=== PATIENT | male | born 1940 | race African-American/Black ===

== ENCOUNTER 2017-01-10 09:24 | Day surgery (SDC) | payer OTHER, BC ==
[2017-01-09 11:39] VITALS: BMI 24.3
--- NOTE | 2017-01-10 11:38 | HP ---
History & Physical Update - History History: No Change - Physical Physical: No Change - Assessment Assessment: No Change - Plan Plan: No Change
[2017-01-10] MEDS ORDERED: OXYCODONE/APAP 5/325MG COMBO TABLET PO PRN (11:40)
--- NOTE | 2017-01-10 11:46 | OP ---
Operative Note - Note: Operative Date: 01/10/17 Pre-Operative Diagnosis: BPH w LUTS Operation: Bipolar TURP Findings: Obstructive prostate Post-Operative Diagnosis: Same as Pre-op Surgeon: Avinash Aguilar Anesthesiologist/COMBER SETTER: Alex Quiñonez Anesthesia: Spinal Specimens Removed: prostate tissue Estimated Blood Loss (mls): 100 Drains & Tubes with Location: [address] 30 ml iraheta Operative Report Dictated: Yes
[2017-01-10] MEDS ORDERED: MIDAZOLAM HCL 2 MG/2 ML SINGLE DOSE VIAL ONE ×2 (11:51)
[2017-01-10] MEDS ORDERED: LEVOFLOXACIN 500 MG IVPB 100 ML IVPB ONE (11:51)
[2017-01-10] MEDS ORDERED: LEVOFLOXACIN 500 MG PREMIX BAG IVPB ONE (12:00)
[2017-01-10] MEDS ORDERED: oxyCODONE HCL 5 MG TABLET PO PRN ×2 (12:15→13:41)
[2017-01-10] MEDS ORDERED: ACETAMINOPHEN 325 MG TABLET (FP) PO PRN (12:15)
[2017-01-10] MEDS ORDERED: ONDANSETRON 4 MG/2 ML VIAL IVPUSH PRN (13:41)
[2017-01-10] MEDS ORDERED: PROMETHAZINE HCL 25 MG/1 ML VIAL IVPUSH PRN (13:41)
[2017-01-10 14:36] LABS: MCH 31.2 pg (25.7-33.7); MCHC 33.9 g/dl (32.0-35.9); MEAN CELL VOLUME 92.3 fl (80-96); MEAN PLT VOLUME 7.3 fl (7.5-11.1); PLATELET COUNT 205 K/MM3 (134-434); WHITE BLOOD COUNT 4.3 K/mm3 (4.0-10.0)
--- NOTE | 2017-01-10 14:39 | OP ---
DATE OF OPERATION: 01/10/2017 PREOPERATIVE DIAGNOSIS: Benign prostatic hypertrophy with lower urinary tract symptoms. POSTOPERATIVE DIAGNOSIS: Benign prostatic hypertrophy with lower urinary tract symptoms. PROCEDURE: Bipolar transurethral resection of the prostate. SURGEON: Avinash Covarrubias MD INTRANET SPECIALIST: None. ANESTHESIA: Spinal. ANESTHESIOLOGIST: Alex Quiñonez MD SPECIMENS: Prostate tissue. CULTURES: None. DRAINS: A 24-Burmese 3-way Perrin catheter with 30-mL balloon. ESTIMATED BLOOD LOSS: 100 mL. COMPLICATIONS: None. PROCEDURE: The patient was brought into the operating room and placed on the operating room table in the supine position. After administration of spinal anesthesia, intravenous antibiotics were administered, and the genitals and perineum were prepped and draped in the usual sterile manner. The urethral meatus was now dilated from 22 to 30 Burmese. The continuous flow Olympus bipolar resectoscope was inserted with the visualizing obturator in place. The visualizing obturator was removed, and the working element was inserted with the loop. Cystoscopy was now performed. This demonstrated no foreign bodies, tumors, stones, inflammation. Both ureteral orifices were in their usual location with clear efflux bilaterally. The TURP was now performed in the standard fashion by first creating a groove in the left lateral lobe at the area off and on the 2 o'clock position from the area of the bladder neck to the verumontanum down to the level of capsular fibers. The prostate showed severe bilobar occlusion measured approximately 5 cm in length. The left lateral lobe of the prostate was then sequentially resected from the 2 o'clock to the 6 o'clock position from the area of the bladder neck to the verumontanum down to the level of capsular fibers. The right lateral lobe of the prostate was resected in a similar fashion. The roof of the prostate was resected, and the floor of the prostate was resected. All resected prostatic tissue was removed from the bladder using the LoSo evacuator. Now the button was exchanged for the loop, and hemostasis was assured. At the end of the procedure, all resected tissue was removed from the bladder. Both ureteral orifices were intact. There was minimal bleeding. The instrument was removed leaving the bladder full. A No. 24-Burmese 3-way Perrin catheter was inserted into the bladder. Then 30 mL was placed in the balloon placed on continuous bladder irrigation on traction. Returned minimally blood tinged. Tolerated the procedure well. Transferred to the recovery room in stable condition. AVINASH COVARRUBIAS M.D. [id number]
[2017-01-10 14:58] LABS: CALCIUM 7.8 mg/dL (8.5-10.1); COCKROFT - GAULT 50.45; CREATININE 1.2 mg/dL (0.7-1.3)
[2017-01-11 07:18] LABS: MCHC 33.9 g/dl (32.0-35.9); MEAN CELL VOLUME 91.4 fl (80-96); MEAN PLT VOLUME 7.6 fl (7.5-11.1); PLATELET COUNT 226 K/MM3 (134-434); RDW 14.1 % (11.9-15.9); WHITE BLOOD COUNT 9.2 K/mm3 (4.0-10.0)
[2017-01-11 07:55] LABS: CALCIUM 8.6 mg/dL (8.5-10.1); COCKROFT - GAULT 46.27; CREATININE 1.3 mg/dL (0.7-1.3)
[2017-01-11] MEDS ORDERED: LEVOFLOXACIN 500 MG TABLET (FP) PO ONE (09:00)
[2017-01-11] MEDS ORDERED: LEVOFLOXACIN 500 MG IVPB 100 ML IVPB SCH (10:00)
[2017-01-11 10:14] VITALS: BP 141/89; PULSE 78; TEMP 98.6
[2017-01-12] MEDS ORDERED: LEVOFLOXACIN 250 MG TABLET (FP) PO SCH (06:00)
--- NOTE | 2017-01-14 13:11 | PATH ---
Surgical Pathology Report Patient Name: YADIEL LINDO [facility]. Rec. #: [id number] /Age/Gender: 1940 (Age: 76) / M Account: [id number] Location: AMBULATORY SURG Taken: 01/10/2017 Received: 01/13/2017 Reported: 01/14/2017 Physicians: Avinash Aguilar M.D. Specimen(s) Received PROSTATE CHIPS Clinical History BPH Final Diagnosis PROSTATE, TUR: BENIGN PROSTATE TISSUE WITH GLANDULAR AND STROMAL HYPERPLASIA. Electronically Signed Enio Barreto M.D. Gross Description Received in formalin labeled "prostate tissue" is a 31 g, 10.5 x 10.5 x 0.8 cm aggregate of multiple bella, irregular, firm to rubbery portions of tissue, consistent with prostate tissue. A contact representative portion (~80% of tissue) is submitted in 13 cassettes. /01/13/2017 [place]udi/01/13/2017
== END 2017-01-11 11:26 | disposition home or self-care (01) ==
LOC: JASUSAT 09:24 → JASU-SURG 09:24 → J6S 16:55 → JASUSAT 01-11 11:26
PROVIDERS: ATTEND Urology
PROC: 0VB08ZZ Excision of Prostate, Via Natural or Artificial Opening Endoscopic (ICD-10-PCS; principal; 2017-01-10 12:00)
DX: N40.1 Benign prostatic hyperplasia with lower urinary tract symptoms (principal)
CPT/HCPCS: 36415; 80048; 85027; 88305-TC; 94760